=== PATIENT | female | born 1995 | race Caucasian/White ===

== ENCOUNTER → 2017-02-12 | Outpatient (CLI) | payer OTHER ==
[~2017-02-12] MED LIST: HYDR1TAB2 PO; [UNRECOGNIZED DRUG - REMARK]
[2017-02-12 10:03] LABS: HEMATOCRIT 39.2 % (37-47)
== END | disposition home or self-care (01) ==
LOC: C.LAB 09:12
PROVIDERS: ATTEND Physician Assistant Medical
DX: R06.02 Shortness of breath (principal)

== ENCOUNTER → 2017-03-03 | Outpatient (CLI) | payer OTHER ==
--- NOTE | 2017-03-09 07:30 | PULMONARY FUNCTION TEST ---
Spirometry and flow volume loops are normal. Repeat study done following bronchodilators showed no significant change in function.
== END | disposition home or self-care (01) ==
LOC: C.RC 09:21
PROVIDERS: ATTEND Physician Assistant Medical
DX: R06.02 Shortness of breath (principal)